=== PATIENT | female | born 1985 | race Caucasian/White ===

== ENCOUNTER 2020-06-06 16:31 | Outpatient (CLI) | payer OTHER, SELFPAY ==
[2020-06-06 17:30] VITALS: BP 132/69; PULSE 81
--- NOTE | 2020-06-06 17:50 | PC.NURSE ---
Pt came in at 1631 for leaking fluid since last night, ROM plus negative and pt set up for induction for this Wednesday.
== END 2020-06-06 17:49 | disposition home or self-care (01) ==
LOC: ANHOBOP 17:21 → ANHLDR 17:24
PROVIDERS: PCP Family Medicine; Visit Provider Obstetrics & Gynecology
DX: O42.90 Premature rupture of membranes, unspecified as to length of time between rupture and onset of labor, unspecified weeks of gestation (principal); Z3A.00 Weeks of gestation of pregnancy not specified
CPT/HCPCS: 59025; 84112; 99199

== ENCOUNTER 2020-06-09 02:47 | Inpatient (IN) | payer OTHER, SELFPAY ==
[2020-06-09] VITALS (97 sets, daily range): BP systolic 70–152; BP diastolic 35–104; PULSE 56–195; RESP 20; TEMP 36.6–37.4; O2SAT 95–100
--- NOTE | 2020-06-09 02:47 | LDADM ---
This patient, Argenis Champion, was admitted to Labor/Delivery/Recovery 107 on 06/09/20 at 02:47. Plans for labor, pain management and were discussed with patient. Patient/family oriented to hospital policies and general routines including ID bracelet, bed and alarms, visiting hours, pain management, procedures, bathroom and other care routines, personal items, smoking policy, room service/diet and guest tray routines, infant security routines, and visiting hours. Patient/Family are encouraged to report perceived risks to care and to ask questions if they do not understand what they are told or what they should do. See OBIX for further documentation.
[2020-06-09 03:31] LABS: Basophils Percent Auto 0.2 % (0.2-1.2); Eosinophils Absolute Auto 0.1 K/mm3 (0-0.3); Eosinophils Percent Auto 0.8 % (0-4.4); Hematocrit 32.7 % (37.0-47.0); Hemoglobin 10.8 g/dL (12.0-15.0); Immature Granulocyte Absolute 0.14 K/mm3 (0.00-0.031); Immature Granulocyte Percent A 1.2 % (0-0.5); Lymphocytes Absolute Auto 2.27 K/mm3 (0.9-3.2); Lymphocytes Percent Auto 20.1 % (18.3-44.2); Mean Corpuscular Hemoglobin 28.6 pg (26-34); Mean Corpuscular Volume 86.7 fl (80-100); Mean Platelet Volume 10.2 fl (7.4-10.4); Monocytes Absolute Auto 0.7 K/mm3 (0.1-0.6); Monocytes Percent Auto 6.1 % (2.6-8.5); Neutrophils Absolute Auto 8.1 K/mm3 (1.3-6.7); Neutrophils Percent Auto 71.6 % (45.5-73.1); Platelet Count Result 251 k/mm3 (150-375); Red Blood Count 3.77 M/mm3 (4.2-5.4); Red Cell Distribution Width 13.9 % (11.5-14.5); White Blood Count 11.3 K/mm3 (4.5-10.0)
[2020-06-09] MEDS: LACTATED RINGERS 1,000 ML 125 ML IV CONT ×3 (03:32→16:47)
[2020-06-09] MEDS: AMPICILLIN 2 GM/NS 100 ML 2 GM/100 ML BAG IVPB (03:33)
--- NOTE | 2020-06-09 06:58 | WPDANESEPPF ---
Anes - Initial Pre Proc Eval Procedure: labor epidural Date/Time: 06/09/20 06:58 Surgeon: Get Anderson MD Pre Op Diagnosis: labor pain Pre Op Diagnosis: Contractions,Leaking Patient Data Age: 34 Gender: F Height: Weight: Last Vital Signs Temp 36.6 C 06/09/20 05:00 Pulse 66 06/09/20 06:57 Resp 20 06/09/20 05:00 BP 104/45 L 06/09/20 06:57 Pulse Ox 97 06/09/20 06:54 Allergies Allergy/AdvReac Type Severity Reaction Status Date / Time minocycline Allergy Unknown Skin Verified 05/18/20 12:42 Reaction cat dander Allergy Sneezing Verified 05/18/20 12:42 mold Allergy Sneezing Verified 05/18/20 12:42 Home Medications Medication Instructions Recorded Confirmed Type PNV cmb#95-ferrous fumarate-FA 1 tablet PO DAILY 05/18/20 05/18/20 History [] cetirizine [Zyrtec] 10 mg PO DAILY 05/18/20 05/18/20 History famotidine [Pepcid] 20 mg PO DAILY 05/18/20 05/18/20 History Laboratory Tests 06/09/20 06/09/20 03:22 03:22 WBC 11.3 K/mm3 H K/mm3 (4.5-10.0) RBC 3.77 M/mm3 L M/mm3 (4.2-5.4) Hgb 10.8 g/dL L g/dL (12.0-15.0) Hct 32.7 % L % (37.0-47.0) MCV 86.7 fl fl (80-100) MCH 28.6 pg pg (26-34) MCHC 33.0 g/dl g/dl (32-36) RDW 13.9 % % (11.5-14.5) Plt Count 251 k/mm3 k/mm3 (150-375) MPV 10.2 fl fl (7.4-10.4) Immature Gran % (Auto) 1.2 % H % (0-0.5) Neut % (Auto) 71.6 % % (45.5-73.1) Lymph % (Auto) 20.1 % % (18.3-44.2) [place] % (Auto) 6.1 % % (2.6-8.5) Eos % (Auto) 0.8 % % (0-4.4) Baso % (Auto) 0.2 % % (0.2-1.2) Lymph # (Auto) 2.27 K/mm3 K/mm3 (0.9-3.2) [place] # (Auto) 0.7 K/mm3 H K/mm3 (0.1-0.6) Eos # (Auto) 0.1 K/mm3 K/mm3 (0-0.3) Baso # (Auto) 0.0 K/mm3 K/mm3 (0.0-0.1) Abs Immat Gran (auto) 0.14 K/mm3 H K/mm3 (0.00-0.031) Absolute Neuts (auto) 8.1 K/mm3 H K/mm3 (1.3-6.7) Absolute Nucleated RBC 0.0 K/mm3 K/mm3 (0.0-0.012) Nucleated RBC % 0.0 % % (0.0-0.2) RPR Pending Patient hx anesthesia problems: none Family hx anesthesia problems: none [facility] Family History Family History Mother Diabetes mellitus Patient's mother is in good health Family history of thyroid disease Father Family history of elevated blood lipids Patient's father is in good health Grandparent Acute myocardial infarction Social History Social History Smoking status: Never smoker Alcohol intake: current Substance use: never Spiritual care concerns: No Anes - Eval Final PreProcedure Day of Procedure 06/09/20 06:58 Patient weight: obese Heart: regular rate and rhythm Lungs: clear to auscultation and normal air movement Airway: Mallampati scale Neurological: alert and oriented ASA classification: II Anesthetic plan: proceed Anesthesia type and monitoring: regional epidural and standard monitoring Informed Consent: The patient's anesthetic plan and its attendant risks and benefits were discussed with the patient/family/POA. Questions were solicited and answers provided to the satisfaction of the patient/family/POA.
[2020-06-09] MEDS: AMPICILLIN 1 GM/NS 50 ML 1 GM/50 ML BAG IVPB ×2 (07:39→11:52)
[2020-06-09] MEDS: OXYTOCIN 30 UNITS/NS 500 ML 30 UNITS/500 ML BAG IV CONT (10:13)
--- NOTE | 2020-06-09 11:34 | P.PNOB_ITS ---
OB - PN: Subj Subjective Date/time seen: 06/09/20 11:34 Patient is comfortable, she is 5 cm dilated, there is reassuring heart tones, we can't place IUPC, to continue expectant management. OB - PN: Obj Data Labs CBC & Chem 7: 06/09/20 03:22 Labs: Laboratory Results - last 24 hr 06/09/20 06/09/20 03:22 03:22 WBC 11.3 H RBC 3.77 L Hgb 10.8 L Hct 32.7 L MCV 86.7 MCH 28.6 MCHC 33.0 RDW 13.9 Plt Count 251 MPV 10.2 Immature Gran % (Auto) 1.2 H Neut % (Auto) 71.6 Lymph % (Auto) 20.1 [place] % (Auto) 6.1 Eos % (Auto) 0.8 Baso % (Auto) 0.2 Lymph # (Auto) 2.27 [place] # (Auto) 0.7 H Eos # (Auto) 0.1 Baso # (Auto) 0.0 Abs Immat Gran (auto) 0.14 H Absolute Neuts (auto) 8.1 H Absolute Nucleated RBC 0.0 Nucleated RBC % 0.0 Blood Type A Positive Antibody Screen Negative OB - PN A/P Time Spent With Patient Time: Total time spent is greater than 50% in coordination of care (as documented) at patient's floor/unit and/or counseling patient:
--- NOTE | 2020-06-09 19:36 | PM.OBPRVD ---
OB - Delivery Note Procedure Delivery date: 06/09/20 Induction method: none Delivery augmentation: pitocin Delivery monitor: external FHT Route of delivery: Laceration description: Periurethral - 3rd Degree Delivery repair: vicryl Specimen: No Estimated blood loss (mL): 200 Disposition: floor Complications: mild shoulder dystocia Baby Date of : 06/09/20 Time of : 19:14 Weeks of gestation at delivery: 40 Weight (pounds): 8 Weight (ounces): 1 presentation: vertex score one minute: 8 score five minutes: 9
--- NOTE | 2020-06-09 19:45 | WPDHPUPDATE1 ---
History and Physical Update Update Date/Time: 06/09/20 19:45 History and Physical has been reviewed, including an updated exam of the patient. There are NO changes in the patient's condition. Risks, benefits, and alternatives have been discussed and questions answered. Patient agrees to proceed with procedure.
[2020-06-09] MEDS: OXYTOCIN 30 UNITS/NS 500 ML 30 UNITS/500 ML BAG 125 UNITS IV CONT (20:00)
[2020-06-09] MEDS: IBUPROFEN 600 MG TABLET PO (21:44)
[2020-06-09] MEDS: BENZOCAINE 20% AER SPR (*SP) 56 GM CAN 1 SPRAY TOPICAL ×2 (21:45→21:59)
[2020-06-09] MEDS: WITCH HAZEL 40 PADS 1 PAD TOPICAL ×2 (21:45→22:00)
[2020-06-09] MEDS: LANOLIN (LANSINOH) 7.5 GM CREAM 1 APPLIC TOPICAL (22:55)
--- NOTE | 2020-06-09 23:48 | PC.NURSE ---
2212 on 06/09/2020 Patient transferred to post room #291 via wheelchair. Support person present. Oriented to unit, room, information board, rooming in, admission packet and security measures. Patient verbalizes understanding.
[2020-06-10] MEDS: DOCUSATE SODIUM 100 MG CAPSULE PO ×3 (01:20→23:18)
[2020-06-10] MEDS: IBUPROFEN 600 MG TABLET PO ×4 (03:42→23:15)
[2020-06-10 04:51] LABS: Hematocrit 28.2 % (37.0-47.0); Hemoglobin 9.5 g/dL (12.0-15.0)
--- NOTE | 2020-06-10 06:59 | PM.OBPNVD ---
OB - PN: Subj Subjective Date/time seen: 06/10/20 06:59 Patient comments: no complaints baby status: doing well OB - PN: Obj Data Labs CBC & Chem 7: 06/10/20 03:31 Labs: Laboratory Results - last 24 hr 06/09/20 06/10/20 03:22 03:31 Hgb 9.5 L Hct 28.2 L Blood Type A Positive Antibody Screen Negative OB - PN A/P Plan day: 1 Plan: routine care Time Spent With Patient Time: Total time spent is greater than 50% in coordination of care (as documented) at patient's floor/unit and/or counseling patient: Review of Systems Review of Systems: All systems reviewed & are unremarkable except as noted in HPI and below Exam Const: General: comfortable Resp: Effort & Inspection: normal respiratory effort Psych: Appearance: grossly normal Affect: normal affect Attitude: cooperative Judgement: Good judgement present (Psych)
[2020-06-10 08:15] VITALS: BP 106/41; PULSE 76; RESP 18; TEMP 36.6
[2020-06-10] MEDS: FAMOTIDINE 20 MG TABLET PO (08:20)
[2020-06-10] MEDS: MULTIVIT/MIN/PREN/FOL AC/IRON TABLET 1 TAB PO (08:20)
[2020-06-10] MEDS: POLYSACCHARIDE IRON COMPLEX 150 MG CAPSULE PO ×2 (08:20→16:42)
[2020-06-10] MEDS: LORATADINE 10 MG TABLET PO (08:20)
[2020-06-10 09:51] LABS: Rapid Plasma Reagin Non-Reactive (NonReactive)
--- NOTE | 2020-06-10 12:15 | PC.NURSE ---
Consulted with patient, upon entering room mother is attempting infant to breast in cradle positioning. is awake and eagerly attempting latch. Mother latches shallow to breast, reporting tenderness with feedings. Reviewed infant feeding cues, frequencies, duration of feedings, feeding elimination flow sheet, and signs of adequate intake. Reviewed positioning/alignment in cross cradle, holding breast in U hold and guided asymmetrical latch on. Discussed rational for each. Infant was able to latch correctly with first attempt. nursed eagerly, with steady draws and frequent swallowing noted. Reviewed signs of a correct latch, effective nursing and suck swallow ratio. Infant was able to maintain latch without discomfort to mother. Nipple care reviewed. Suggested mother stimulate during feeding to keep infant awake and nursing effectively and to assist with maintaining deep latch. Demonstrated how to adjust latch more deeply while feeding. Instructed mother to call out for RN assistance if she is unable to latch infant for feeding or she has discomfort with nursing. Instructed feeding should be initiated three hours from start of last feeding or if feeding cues are noted before. Mother voiced understanding of information shared.
[2020-06-10 21:05] VITALS: BP 114/62; PULSE 77; RESP 18; TEMP 36.6; O2SAT 100
[2020-06-11] MEDS: TETANUS,DIPHTHERIA,AC PERTUSSIS ADULT (0.5 ML) BOOSTRIX IM (04:36)
[2020-06-11] MEDS: IBUPROFEN 600 MG TABLET PO ×2 (04:48→13:06)
--- NOTE | 2020-06-11 07:42 | P.PNOB_ITS ---
OB - PN: Subj Subjective Date/time seen: 06/11/20 07:42 Patient comments: no complaints baby status: doing well OB - PN: Obj Data Labs CBC & Chem 7: 06/10/20 03:31 Labs: Laboratory Results - last 24 hr 06/09/20 03:22 RPR Non-reactive OB - PN A/P Plan day: 2 Plan: routine care Time Spent With Patient Time: Total time spent is greater than 50% in coordination of care (as doc umented) at patient's floor/unit and/or counseling patient: Exam Const: General: comfortable Psych: Appearance: grossly normal Affect: normal affect Attitude: cooperative Judgement: Good judgement present (Psych)
[2020-06-11 07:45] VITALS: BP 121/56; PULSE 65; RESP 18; TEMP 36.2; O2SAT 100
--- NOTE | 2020-06-11 08:00 | PC.NURSE ---
Patient viewed the discharge video Mother & Baby Care, The First Two Weeks . Patient was given the opportunity and encouraged to ask questions. Patient verbalized understanding of information shared and has been given the mother/baby guide for home reference.
[2020-06-11] MEDS: DOCUSATE SODIUM 100 MG CAPSULE PO (08:03)
[2020-06-11] MEDS: POLYSACCHARIDE IRON COMPLEX 150 MG CAPSULE PO (08:03)
[2020-06-11] MEDS: MULTIVIT/MIN/PREN/FOL AC/IRON TABLET 1 TAB PO (08:03)
[2020-06-11] MEDS: LORATADINE 10 MG TABLET PO (08:04)
[2020-06-11] MEDS: FAMOTIDINE 20 MG TABLET PO (08:04)
--- NOTE | 2020-06-11 08:30 | PC.NURSE ---
Macy 5 given at 0826 given by this RN Mireya White RN. Administered under [facility]- login error.
--- NOTE | 2020-06-11 11:30 | PC.NURSE ---
Mother called out for assist with feeding. Reporting is fussy and on and off with this feeding. Assisted with infant to breast. Reviewed positioning/alignment in cross cradle, holding breast in U hold and guided asymmetrical latch on. Discussed rational for each. Infant was able to latch correctly. nursed eagerly, with steady draws and frequent swallowing noted. Reviewed signs of a correct latch, effective nursing and suck swallow ratio. Mother reports she has not been holding breast once infant is latched and feels that may be the reasoning infant is on and off. Mother states she feels is latched deeply and more consistent with suck swallow. Infant was able to maintain latch without discomfort to mother. Nipple care reviewed. Discussed holding breast assist infant with maintaining deep latch for increased intake. Discussed infant output reviewing infant is not having output and ICP would like. Supplementation of 15 mls will be initiated after each feeding until mother's milk is in. Reviewed milk should transition within a few days and reviewed signs when may need increase in supplement. Mother wishes to be discharged today. Mother is able to independently latch with appropriate positioning/alignment. She denies any nipple discomfort, is feeding as required and waking to feed if needed. Infant has had at least 8 effective feedings in the past 24 hours, and is currently meeting outcomes for weight, output, jaundice and feeding frequencies. Mother states she feels confident to continue effective at home. Reviewed transition to breast milk, signs of adequate intake, and engorgement/relief. Instructed to call ICP if intake/output less than required. Reviewed regular medications mother is taking. Information provided per Rosemary. Reviewed community resources on the [facility] website and in the Mom/Baby guide. Information on outpatient services provided. Mother has no further questions at this time.
[2020-06-12 07:54] VITALS: BP 109/43; PULSE 74; RESP 20; TEMP 37; O2SAT 99
--- NOTE | 2020-06-16 20:27 | PM.OBDSVD ---
DS: Admitting Diagnosis Admitting Diagnosis Admitting Diagnosis: Contractions,Leaking DS: Discharge Diagnosis Discharge Diagnosis (1) Term delivered: Code(s): O80 - Encounter for full-term uncomplicated delivery Status: Acute OB - DS: Summary OB Procedures : None OB Procedures Intrapartum: Spontaneous Vag Delivery OB Procedures: : None Time Spent with Patient Time attestation: Total time spent providing and/or coordinating discharge services: Discharge Plan Discharge Attending physician on discharge: Get Anderson Consulting providers: Kenya Benites Discharging Clinician: Kenya Benites Patient Disposition: Home, Self-Care Activity: pelvic rest Diet: regular Discharge Instructions: Education: Mom and Baby Guide and Preeclampsia Handout Given to: Mother Follow-Up: Call your delivering provider's office for an appointment to be seen in: 4 Weeks Mom and baby should come to the [facility] for the follow-up appointment. Appointment Date/Time: June 12, 2020 at 8:00 am What to expect at your follow-up visit: Physical Assessment Call [phone] if you are unable to keep your appointment time. BREAST CARE: * Wear a snug supportive bra. * For engorgement discomfort: Breast Feeding: * Apply warm moist washcloths * Express milk as needed to relieve engorgement * Wear loose clothing * For sore nipples: * Identify correct latch-on * Apply warm moist washcloths before and after nursing * Air dry nipples after nursing * May apply Lansinoh cream to nipples EPISIOTOMY/PERINEAL CARE: * Until bleeding stops, use your racquel bottle after urinating * Change your pad frequently throughout the day * You may take sitz baths several times a day (fill your bathtub with warm water and soak for 20 minutes.) Do NOT bathe in the water * No tub baths until seen by your physician - You may shower ACTIVITY: * Rest as much as possible. * Do not exercise or lift anything heavier than your baby (such as laundry or other children.) * Avoid stairs or driving as much as possible. * Do not put anything into the vagina. No douching, tampons, or sexual activity until seen by physician. NOTIFY PHYSICIAN IF YOU HAVE ANY QUESTIONS OR IF ANY OF THE FOLLOWING SYMPTOMS OCCUR: * If your episiotomy or incision becomes red, swollen, or more painful than what you have experienced in the hospital. * If your vaginal bleeding becomes foul smelling. * If your vaginal bleeding becomes more heavy than a period or if your bleeding changes from pink to bright red. However, you may pass an occasional walnut-sized clot once or twice for the first week . * If you experience a sharp, shooting pain in you calves. * If you discover a hard, reddened area on your breast or if you experience flu-like symptoms. DIET: * Eat regular, well-balanced meals. * Drink plenty of fluids daily. If , drink to thirst. Stand Alone Forms: General Discharge Information Follow-up/Referrals: Get Anderson MD [Physician] - 4 Weeks Discharge Medications: New hydrocodone-acetaminophen 5-325 mg Tablet 1 tab PO Q3H PRN (Reason: Moderate Pain (4-6)) Qty: 20 RF: 0 ibuprofen 600 mg Tablet 600 mg PO Q6H PRN (Reason: Cramping) Qty: 30 RF: 0 Continued cetirizine [Zyrtec] 10 mg Tablet 10 mg PO DAILY RF: 0 famotidine [Pepcid] 20 mg Tablet 20 mg PO DAILY RF: 0 PNV cmb#95-ferrous fumarate-FA [] 28 mg iron- 800 mcg Tablet 1 tablet PO DAILY RF: 0 Date of admission: 06/09/20 02:47 Primary Care Provider: Vicenta Platt Admitting Provider: Get Anderson Discharge Date/Time: 06/11/20 16:22 Attending physician on admission: Get Adnerson
== END 2020-06-11 16:22 | disposition home or self-care (01) | DRG 807 ==
LOC: ANHLDR 04:04 → ANHOB2 22:33
PROVIDERS: Advanced Practice Midwife; Admitting Provider Obstetrics & Gynecology; PCP Family Medicine; Visit Provider Obstetrics & Gynecology
DX: O99.824 Streptococcus B carrier state complicating childbirth (principal); Z37.0 Single live birth; Z3A.40 40 weeks gestation of pregnancy; O69.81X0 Labor and delivery complicated by cord around neck, without compression, not applicable or unspecified; O71.82 Other specified trauma to perineum and vulva; O66.0 Obstructed labor due to shoulder dystocia
CPT/HCPCS: 36415; 85014; 85018; 85025; 86592; 86850; 86900; 86901; 90715; A9270; J0290; J2590; J2795; J7120

== ENCOUNTER 2020-08-06 17:10 | Emergency (ER) | payer OTHER, SELFPAY ==
[2020-08-06] VITALS (10 sets, daily range): BP systolic 119–149; BP diastolic 63–92; PULSE 77–97; RESP 13–26; TEMP 36.6; O2SAT 95–100
--- NOTE | ~2020-08-06 | XR_ITS ---
EXAMINATION: XR chest 2V EXAM DATE: 08/06/2020 18:00 INDICATION: Shortness of breath last night. History of asthma. TECHNIQUE: Frontal and lateral projections of the chest obtained and reviewed. There is no prior nikunj dy for comparison. FINDINGS: The lungs are clear. There are no pleural effusions. The cardiomediastinal silhouette is within normal limits. There is no pneumothorax suspected. The bones and soft tissues are unremarkab le. IMPRESSION: Normal chest x-ray exam. Reviewed, dictated and finalized at location A. IMPRESSION: Normal chest x-ray exam.
--- NOTE | 2020-08-06 17:19 | ED.SKABFB ---
HPI - Skin/Abscess/Foreign Bdy General Chief complaint: Shortness of Breath/Dyspnea Stated complaint: difficulty breathing Time Seen by Provider: 08/06/20 17:15 History of Present Illness HPI narrative: Cough and SOB for several days. Getting worse. SHe has a h/o allergy induced asthma. SHe is not on any control medications. Albuterol not helping. She had telehealth appointment with her PCP today and they asked her to come to the ED. She has mild pain with coughing. No fever, sick contacts, nausea, vomiting. Related Data Home Medications Medication Instructions Recorded Confirmed PNV cmb#95-ferrous fumarate-FA 1 tablet PO DAILY 05/18/20 05/18/20 [] cetirizine [Zyrtec] 10 mg PO DAILY 05/18/20 05/18/20 famotidine [Pepcid] 20 mg PO DAILY 05/18/20 05/18/20 Allergies Allergy/AdvReac Type Severity Reaction Status Date / Time minocycline Allergy Unknown Skin Verified 08/06/20 18:07 Reaction cat dander Allergy Sneezing Verified 08/06/20 18:07 mold Allergy Sneezing Verified 08/06/20 18:07 Review of Systems Review of Systems: All systems reviewed & are unremarkable except as noted in HPI and below Constitutional: Constitutional: Denies chills, Denies fever(s) and Denies weakness ENT: Denies sore throat Cardiovascular: Cardiovascular: Denies chest pain Respiratory: Respiratory: Reports chest congestion, Reports cough, Reports dyspnea and Reports wheezing Gastrointestinal: Gastrointestinal: Denies abdominal pain, Denies nausea and Denies vomiting Musculoskeletal: Musculoskeletal: Denies back pain Neurologic: Denies dizziness and Denies weakness [facility] Past Medical History Medical History Mild intermittent asthma Vaginal delivery Family History Family History Mother Diabetes mellitus Patient's mother is in good health Family history of thyroid disease Father Family history of elevated blood lipids Patient's father is in good health Grandparent Acute myocardial infarction Social History Social History Smoking status: Never smoker Alcohol intake: current Substance use: never Gender identity (if verbalized by the patient): Female Spiritual care concerns: No Exam Const: General: healthy appearing, no acute distress and alert Orientation/consciousness: patient oriented x3 HENMT: Head: normal to inspection Neck: Neck: normal visual inspection and no lymphadenopathy Chest: Chest palpation & inspection: no tenderness Resp: Effort & Inspection: tachypneic Auscultation: no rales, no rhonchi and wheezes Cardio: Jugular venous distension: no JVD Rate: regular rate Rhythm: regular rhythm Heart sounds: no murmurs GI: Inspection: non-distended GI Palp: Yes Soft to palpation and No Tenderness to palpation present (GI) Skin: General skin exam: normal color Neuro: General: patient oriented x3 and moves all extremities Speech: normal speech Extrem: General: no edema Psych: Appearance: well kempt Affect: normal affect Course Vital Signs Vital signs: Vital Signs Pulse Rate 77 08/06/20 17:33 Respiratory Rate 16 08/06/20 17:33 Temperature 36.6 C 08/06/20 17:35 Pulse Rate 82 08/06/20 17:43 Respiratory Rate 16 08/06/20 17:43 Blood Pressure 149/92 H 08/06/20 17:35 Pulse Oximetry 99 08/06/20 17:35 MDM - Skin/Abscess/Foreign Bdy MDM Narrative Medical decision making narrative: Labs and chest x-ray reassuring. Significant improvement with nebulizer, mag, solu-medrol Medical Records Attestation: I reviewed the patient's medical records. Lab Data Attestation: I reviewed the patient's lab results. Result diagrams: 08/06/20 17:29 08/06/20 17:30 Labs: Lab Results 08/06/20 08/06/20 Range/Units 17:29 17:30 WBC 8.5 (4.5-10.0) K/mm3 RBC 4.
[2020-08-06] MEDS: methylPREDNISolone SOD SUCC 125 MG VIAL IV PUSH (17:27)
[2020-08-06] MEDS: ALBUTEROL SULFATE NEB 2.5 MG/0.5 ML INH 5 MG INHALATION (17:33)
[2020-08-06] MEDS: IPRATROPIUM BR 0.02% INH SOLN 0.5 MG/2.5 ML VIAL INHALATION (17:33)
[2020-08-06] MEDS: MAGNESIUM SULF 2 GM/WATER 50ML 2 GM/50 ML BAG IVPB (17:34)
[2020-08-06 17:41] LABS: Basophils Percent Auto 0.2 % (0.2-1.2); Eosinophils Absolute Auto 0.6 K/mm3 (0-0.3); Eosinophils Percent Auto 6.6 % (0-4.4); Hematocrit 39.1 % (37.0-47.0); Hemoglobin 12.5 g/dL (12.0-15.0); Immature Granulocyte Absolute 0.03 K/mm3 (0.00-0.031); Immature Granulocyte Percent A 0.4 % (0-0.5); Lymphocytes Absolute Auto 2.71 K/mm3 (0.9-3.2); Mean Corpuscular Hemoglobin 27.7 pg (26-34); Mean Corpuscular Volume 86.7 fl (80-100); Mean Platelet Volume 9.2 fl (7.4-10.4); Monocytes Absolute Auto 0.5 K/mm3 (0.1-0.6); Monocytes Percent Auto 5.8 % (2.6-8.5); Neutrophils Absolute Auto 4.7 K/mm3 (1.3-6.7); Platelet Count Result 341 k/mm3 (150-375); Red Blood Count 4.51 M/mm3 (4.2-5.4); White Blood Count 8.5 K/mm3 (4.5-10.0)
[2020-08-06 17:53] LABS: Anion Gap 10 mmol/L (8-16); Blood Urea Nitrogen 15 mg/dL (7-17); Calcium 8.8 mg/dL (8.4-10.2); Carbon Dioxide 28 mmol/L (22-30); Chloride 103 mmol/L (98-107); Estimated Glomerular Filt Rate > 60; Glucose 104 mg/dL (65-105); Potassium 3.6 mmol/L (3.4-5.0); Sodium 141 mmol/L (137-145)
== END 2020-08-06 18:35 | disposition home or self-care (01) ==
PROVIDERS: Emergency Provider Emergency Medicine; PCP Family Medicine
DX: J45.21 Mild intermittent asthma with (acute) exacerbation (principal)
CPT/HCPCS: 36415; 71046; 80048; 85025; 94640; 96365; 96375; 99284; J2930; J3475

== ENCOUNTER 2021-01-30 14:47 | Outpatient (CLI) | payer OTHER, SELFPAY | END 2021-01-30 14:48 | disposition home or self-care (01) | LOC: ANHCOVIDVC 14:47 | PROVIDERS: PCP Family Medicine | DX: Z23 Encounter for immunization (principal) | CPT/HCPCS: 0001A; 91300 ==

== ENCOUNTER 2021-02-20 14:41 | Outpatient (CLI) | payer OTHER, SELFPAY | END 2021-02-20 14:42 | disposition home or self-care (01) | LOC: ANHCOVIDVC 14:42 | PROVIDERS: PCP Family Medicine | DX: Z23 Encounter for immunization (principal) | CPT/HCPCS: 0002A; 91300 ==